=== PATIENT | female | born 1960 | race Caucasian/White ===

== ENCOUNTER 2019-06-13 18:51 | Emergency (ER) | payer BC ==
[~2019-06-13] VITALS: Ht 167.6 cm; Wt 72.6 kg
[~2019-06-13 18:51] MED LIST: BUS10 PO; MOTRIN800 MG PO; [UNRECOGNIZED DRUG - OTHER] TD
[2019-06-13 19:00] VITALS: Ht 167.6 cm; Wt 72.6 kg
[2019-06-13 20:03] LABS: BASOPHIL % 0.5 % (0-2); PLATELET COUNT 158 x10^3mcL (130-400); RED CELL DISTRIBUTION WIDTH 14.8 % (11.5-14.5)
[2019-06-13 20:14] LABS: CALCIUM 9.3 mg/dL (8.5-10.1); CARBON DIOXIDE 27.2 mmol/L (21-32); CHLORIDE SERUM 96 mmol/L (98-107); CREATININE SERUM 0.7 mg/dL (0.6-1.0); GFR1 > 60 mL/min; GLUCOSE SERUM 89 mg/dL (74-106); POTASSIUM SERUM 3.3 mmol/L (3.5-5.1); SODIUM SERUM 134 mmol/L (136-145)
[2019-06-13 20:19] LABS: ALBUMIN 4.1 g/dL (3.4-5.0); ALKALINE PHOSPHATASE 71 U/L (46-116); ALT/SGPT 31 U/L (14-59); AST/SGOT 24 U/L (15-37); BILIRUBIN TOTAL 0.4 mg/dL (0.20-1.00); TOTAL PROTEIN, SERUM 9.5 g/dL (6.4-8.2)
[2019-06-13 21:00] LABS: microscopic required? YES; urine erythrocyte 1+ (NEGATIVE)
[2019-06-13 21:48] VITALS: BP 120/76
== END 2019-06-13 21:48 | disposition home or self-care (01) ==
LOC: ED 18:51
PROVIDERS: Emergency Medicine
DX: R07.89 Other chest pain (principal); Z20.828 Contact with and (suspected) exposure to other viral communicable diseases
CPT/HCPCS: 36415